=== PATIENT | female | born 1950 | race Caucasian/White ===

== ENCOUNTER 2017-03-04 13:58 | Day surgery (SDC) | payer MEDICARE ==
[2017-03-02 12:01] LABS: PARTIAL THROMBO TIME 29.2 SEC (22.5-37.2); PROTIME (NOT ORD) 13.2 SEC (12.0-14.5)
--- NOTE | ~2017-03-04 | OP ---
Record Of Operation [facility] [address] [place]. [address] NAME: ARIEL SMITH : 52 STATUS : [facility]#: [id number] AGE: 66 ADM/REG DATE : 03/04/17 MR#: [id number] REPORT SERV DATE: 03/05/17 DICTATED BY: MALLY OROZCO DATE: 03/05/17 REPORT STATUS : Draft TRANSCRIBED BY: MODL DATE: 03/05/17 DATE OF PROCEDURE: 03/04/2017 PREOPERATIVE DIAGNOSIS: Surgical absence of the right breast, reconstructed by latissimus dorsi tissue expansion technique. Deformity of implant-based reconstruction. History of breast cancer. POSTOPERATIVE DIAGNOSIS: Surgical absence of the right breast, reconstructed by latissimus dorsi tissue expansion technique. Deformity of implant-based reconstruction. History of breast cancer. INDICATIONS AND FINDINGS OF THE PROCEDURE: This middle-aged female reports with a reconstructed tissue expanded right breast mound using latissimus dorsi implant technique. She is now appropriate for the above-described operative intervention. DETAILS OF THE PROCEDURE: The patient was brought to the operating room. After adequate sedation was achieved, she was prepped and draped in usual sterile fashion for the above- described procedure. First, small stab incisions were made in the abdomen and approximately 350 mL of wetting solution was then infiltrated into the abdominal fatty wall. Using standard fat harvest techniques, approximately 250 mL of lipoaspirate was then removed to a REVOLVE apparatus. This was processed appropriately and then transferred to a series of 10 mL syringes. Using a topographical map placed preoperatively and a series of cannulas including a pickle fork type cannula, 130 mL of fat was transferred into the right breast mound. With this completed, she was re-washed with Hibiclens soap, gloves were changed and incision was then made excising a crescent of her right latissimus dorsi cutaneous paddle. Dissection was carried down to the level of the tissue feature writer, which was ruptured and removed. A superior capsulotomy and lateral capsulotomy were then created using lighted retraction. Hemostasis was checked throughout inferior 10-Ecuadorean drain was placed and secured. She was irrigated with Hibiclens solution and a 420MM plus of implant was placed, 5th degeneration into the pocket. This was manipulated into an appropriate position. The capsular muscular layer was then closed with 3-0 Vicryl. She was closed with a series of Vicryl and Monocryl through to an intracuticular in the skin. She was cleansed with peroxide. The stab injection and aspiration incisions were closed with 5-0 fast-absorbing gut and she was remanded to the recovery room in stable condition. All sponge and needle counts are correct. Approximately 130 mL of fat was transferred. NICOLE/PIPE Mally Orozco M.D. / [id number] CC: Record Of Operation [address] [address] NAME: ARIEL SMITH : 52 STATUS : [facility] PAT#: [id number] AGE: 66 ADM/REG DATE : 03/04/17 MR#: [id number] REPORT SERV DATE: 03/05/17 DICTATED BY: MALLY OROZCO DATE: 03/05/17 REPORT STATUS : Draft TRANSCRIBED BY: PIPE DATE: 03/05/17 Nader Blue CHRISTINA
[~2017-03-04 13:58] MED LIST: ADVIL PO; AMB10 PO; ARIMIDEX1 PO; AROMASIN25 PO; AT25 PO; AUG875 PO; CELEXA40 MG PO; NORCO1 TA1 PO; PCET PO; PR25 PO; TRAZ50 PO; ULTRAM50 PO; VIST25 PO; VITAMIN D31000 UNIT PO; ZOFRAN4 PO
== END 2017-03-04 20:53 | disposition home or self-care (01) ==
LOC: SDC 13:58
PROVIDERS: Surgery Surgery of the Hand
PROC: 0HRT0JZ Replacement of Right Breast with Synthetic Substitute, Open Approach (ICD-10-PCS; 2017-03-04)
PROC: 3E013GC Introduction of Other Therapeutic Substance into Subcutaneous Tissue, Percutaneous Approach (ICD-10-PCS; 2017-03-04)
PROC: 0HPT0NZ Removal of Tissue Expander from Right Breast, Open Approach (ICD-10-PCS; principal; 2017-03-04 15:30)
DX: N65.0 Deformity of reconstructed breast (principal); Z88.8 Allergy status to other drugs, medicaments and biological substances; Z79.899 Other long term (current) drug therapy; Z88.6 Allergy status to analgesic agent; Z79.1 Long term (current) use of non-steroidal anti-inflammatories (NSAID); Z98.890 Other specified postprocedural states; Z85.3 Personal history of malignant neoplasm of breast
CPT/HCPCS: 85576; 85610; 85730; 93005; A9270-GY; C1769; C1789; J0690; J1885; J2250; J2270; J2405; J3010